=== PATIENT | female | born 1970 | race Caucasian/White ===

== ENCOUNTER 2024-06-29 10:19 | Observation (INO) ==
--- NOTE | 2024-06-29 10:34 | DR.SOBA ---
HPI Time Seen Time Seen by Provider: 06/29/24 10:34 Reviewed Nurses Notes Reviewed: Yes PE Vital Signs Vitals: Vital Signs Temperature 97.9 F Pulse Rate 79 Pulse Rate 79 Pulse Rate 75 Pulse Rate 75 Pulse Rate 75 Pulse Rate 78 Pulse Rate 80 Pulse Rate 79 Pulse Rate 73 Pulse Rate 81 Pulse Rate 75 Pulse Rate 75 Pulse Rate 74 Pulse Rate 77 Pulse Rate 73 Pulse Rate 80 Pulse Rate 77 Pulse Rate 77 Pulse Rate 79 Pulse Rate 82 Pulse Rate 82 Pulse Rate 84 Respiratory Rate 23 Respiratory Rate 22 Respiratory Rate 22 Respiratory Rate 26 Respiratory Rate 27 Respiratory Rate 31 Respiratory Rate 32 Respiratory Rate 35 Respiratory Rate 23 Respiratory Rate 35 Respiratory Rate 23 Respiratory Rate 22 Respiratory Rate 21 Respiratory Rate 23 Respiratory Rate 20 Respiratory Rate 32 Respiratory Rate 26 Respiratory Rate 24 Respiratory Rate 25 Respiratory Rate 20 Respiratory Rate 28 Respiratory Rate 20 Blood Pressure 136/80 O2 Sat by Pulse Oximetry 100 O2 Sat by Pulse Oximetry 100 O2 Sat by Pulse Oximetry 100 O2 Sat by Pulse Oximetry 100 O2 Sat by Pulse Oximetry 100 O2 Sat by Pulse Oximetry 100 O2 Sat by Pulse Oximetry 100 O2 Sat by Pulse Oximetry 100 O2 Sat by Pulse Oximetry 100 O2 Sat by Pulse Oximetry 100 O2 Sat by Pulse Oximetry 97 O2 Sat by Pulse Oximetry 97 O2 Sat by Pulse Oximetry 100 [facility] Labs Reviewed 06/30/24 05:26 06/30/24 05:26 Laboratory: WBC 8.0 X10^3/uL (3.6-10.0) 06/29/24 11:03 RBC 5.02 X10^6/uL (3.5-5.4) 06/29/24 11:03 Hgb 15.8 g/dL (12.0-16.0) 06/29/24 11:03 Hct 44.7 % (36.0-47.0) 06/29/24 11:03 MCV 89.0 fL (80.0-100.0) 06/29/24 11:03 MCH 31.4 pg (27.0-34.0) 06/29/24 11:03 MCHC 35.2 g/dL (33.0-35.0) H 06/29/24 11:03 RDW 12.5 % (11.6-16.5) 06/29/24 11:03 Plt Count 275 X10^3/uL (150.0-450.0) 06/29/24 11:03 MPV 8.9 fL (7.4-11.0) 06/29/24 11:03 Neut % (Auto) 61.6 % (42.0-75.0) 06/29/24 11:03 Lymph % (Auto) 28.9 % (21.0-51.0) 06/29/24 11:03 [place] % (Auto) 8.4 % (0.0-13.0) 06/29/24 11:03 Eos % (Auto) 0.4 % (0.9-2.9) L 06/29/24 11:03 Baso % (Auto) 0.7 % (0.2-1.0) 06/29/24 11:03 Neut # (Auto) 4.9 x10^3/uL (2.2-4.8) H 06/29/24 11:03 Lymph # (Auto) 2.3 X10^3/uL (1.3-2.9) 06/29/24 11:03 [place] # (Auto) 0.7 x10^3/uL (0.3-0.8) 06/29/24 11:03 Eos # (Auto) 0.0 x10^3/uL (0.0-0.2) 06/29/24 11:03 Baso # (Auto) 0.1 X10^3/uL (0.0-0.1) 06/29/24 11:03 Absolute Nucleated RBC 0.1 /100WBC 06/29/24 11:03 Sodium 136 mmol/L (136-145) 06/29/24 11:03 Corrected Sodium TNP 06/29/24 11:03 Potassium 2.8 mmol/L (3.5-5.1) L* 06/29/24 11:03 Chloride 99 mmol/L (98-107) 06/29/24 11:03 Carbon Dioxide 27.7 mmol/L (21-32) 06/29/24 11:03 BUN 9 mg/dL (7-18) 06/29/24 11:03 Creatinine 0.63 mg/dL (0.55-1.02) 06/29/24 11:03 Est GFR (MDRD) Af Amer > 60 (>60) 06/29/24 11:03 Est GFR (MDRD) Non-Af > 60 (>60) 06/29/24 11:03 Glucose 98 mg/dL (65-99) 06/29/24 11:03 Calcium 9.2 mg/dL (8.5-10.1) 06/29/24 11:03 Corrected Calcium TNP 06/29/24 11:03 Magnesium 2.0 mg/dL (2.0-2.9) 06/29/24 11:03 Total Bilirubin 0.60 mg/dL (0.2-1.0) 06/29/24 11:03 AST 15 Units/L (15-37) 06/29/24 11:03 ALT 39 Units/L (12-78) 06/29/24 11:03 Alkaline Phosphatase 95 Units/L (46-116) 06/29/24 11:03 Creatine Kinase 54 Units/L (26-192) 06/29/24 11:03 Troponin I High Sens 5.2 ng/L (4.0-60.0) 06/29/24 11:03 Total Protein 7.7 g/dL (6.4-8.2) 06/29/24 11:03 Albumin 4.1 g/dL (3.4-5.0) 06/29/24 11:03 Globulin 3.6 g/dL (2.5-4.5) 06/29/24 11:03 Albumin/Globulin Ratio 1.1 Ratio (1.1-2.1) 06/29/24 11:03 TSH 3rd Generation 1.766 uIU/mL (0.358-3.74) 06/29/24 11:03 Opioid Opioid Risk Tool Total: 0 Total Score Risk Category: Low Risk Copyright: [employer] predicting aberrant behaviors Discharge Plan Diagnosis Discharge Problem: Throat tightness, Chest pain, Dysphagia Discharge Plan Patient Disposition: ADMITTED INPATIENT Condition: Stable Orders to Discharge Patient Discharge Orders: Discharge (Routine); Ordered 06/30/24 Ordered By: ANNA RUIZ
[2024-06-29 11:12] LABS: BASOPHILS # (AUTO) 0.1 X10^3/uL (0.0-0.1); BASOPHILS % (AUTO) 0.7 % (0.2-1.0); EOSINOPHILS % (AUTO) 0.4 % (0.9-2.9); HEMATOCRIT 44.7 % (36.0-47.0); HEMOGLOBIN 15.8 g/dL (12.0-16.0); LYMPHOCYTES # (AUTO) 2.3 X10^3/uL (1.3-2.9); LYMPHOCYTES % (AUTO) 28.9 % (21.0-51.0); MEAN CORPUSCULAR HEMOGLOBIN 31.4 pg (27.0-34.0); MEAN CORPUSCULAR HGB CONC 35.2 g/dL (33.0-35.0); MEAN PLATELET VOLUME 8.9 fL (7.4-11.0); MONOCYTES # (AUTO) 0.7 x10^3/uL (0.3-0.8); MONOCYTES % (AUTO) 8.4 % (0.0-13.0); NEUTROPHILS # (AUTO) 4.9 x10^3/uL (2.2-4.8); NEUTROPHILS % (AUTO) 61.6 % (42.0-75.0); PLATELET COUNT 275 X10^3/uL (150.0-450.0); RED BLOOD COUNT 5.02 X10^6/uL (3.5-5.4); RED CELL DISTRIBUTION WIDTH 12.5 % (11.6-16.5)
[2024-06-29 11:32] LABS: ALANINE AMINOTRANSFERASE 39 Units/L (12-78); ALBUMIN 4.1 g/dL (3.4-5.0); ALKALINE PHOSPHATASE 95 Units/L (46-116); ASPARTATE AMINO TRANSFERASE 15 Units/L (15-37); BLOOD UREA NITROGEN 9 mg/dL (7-18); CALCIUM 9.2 mg/dL (8.5-10.1); CARBON DIOXIDE 27.7 mmol/L (21-32); CHLORIDE 99 mmol/L (98-107); CREATINE KINASE 54 Units/L (26-192); CREATININE 0.63 mg/dL (0.55-1.02); GLUCOSE 98 mg/dL (65-99); SODIUM 136 mmol/L (136-145); TOTAL PROTEIN 7.7 g/dL (6.4-8.2); TSH (3RD GENERATION) 1.766 uIU/mL (0.358-3.74); eGFR NON BLACK RACES > 60 (>60)
[2024-06-29 11:37] LABS: POTASSIUM 2.8 mmol/L (3.5-5.1)
--- NOTE | 2024-06-29 11:37 | RAD ---
EXAM:CHEST, 1 VIEWHISTORY:trouble swallowing;COMPARISON:NoneFINDINGS:The cardiomediastinal silhouette is normal in size.No acute airspace disease. No pneumothorax or effusion.No acute osseous abnormality.IMPRESSION:No acute cardiopulmonary disease.THIS IS AN ELECTRONICALLY VERIFIED FINAL REPORT06/29/2024 11:32 AM - Electronically signed by Miguelangel Louise MD
--- NOTE | 2024-06-29 11:48 | CT ---
EXAM:SOFT TISSUE NECK W/O CONHISTORY:pt states that she has felt her throat being swollen since 06/20/24 after she ate some shrimp;COMPARISON:None.TECHNIQUE:Axial CT images of the neck were obtained after the administration of IV contrast and reformatted into sagittal and coronal planes for further evaluation.All CT exams at this facility utilize dose modulation, iterative reconstruction, and/or weight based dosing as appropriate to reduce radiation levels to as low as reasonably achievable (ALARA).Radiation dose is recorded in the patient's medical record.FINDINGS:Oropharynx and nasopharynx are unremarkable.Retropharyngeal and parapharyngeal spaces appear normal.Epiglottis and aryepiglottic folds appear normal.Glottis appears normal.There is a prominent lymph node in the right parotid gland which does not meet criteria for adenopathy. Otherwise, parotid and submandibular glands appear normal.Thyroid appears normalLung apices are clear of focal airspace disease.No lymphadenopathy.Imaged portion of the structures of the mediastinum are unremarkable.No acute osseous abnormality.Imaged portion of brain and intracranial vasculature appears normal.Sinuses and mastoid air cells are well aerated.Imaged portion of the globes and intraorbital contents appear normal.Neck vasculature is unremarkable.IMPRESSION:No acute abnormality identified.THIS IS AN ELECTRONICALLY VERIFIED FINAL REPORT06/29/2024 11:44 AM - Electronically signed by Joseph Wilkins MD
[2024-06-29] MEDS: NS 1,000 ML IV 1,000 ML with POTASSIUM CHLORIDE INJ 40 MEQ VIAL 40 MEQ IV NR (12:05)
[2024-06-29] MEDS: PROTONIX INJ 40 MG VIAL 80 MG in NS 100 ML IV 80 ML IV SCH (14:28)
--- NOTE | 2024-06-29 15:42 | CT ---
EXAM: CT CHEST WITHOUT IV CONTRAST HISTORY: chest pain, dysphagia; COMPARISON: Chest x-ray from same date. TECHNIQUE: Axial CT images were obtained through the chest without IV contrast. Coronal and sagittal reformatte d images were included. All CT scans at this facility use dose modulation, iterative reconstruction, and/or weight based dosi ng when appropriate to reduce radiation dose to as low as reasonably achievable. FINDINGS: Normal caliber thoracic aorta and main pulmonary artery. No pericardial effusion. No thoracic lymph adenopathy. Small hiatal hernia. Trachea is midline and central airways are patent. No focal consolidation, pleural effusion, or pneu mothorax. No acute osseous findings. Visualized upper abdominal organs are unremarkable. No acute findings in the visualized upper abdomen. IMPRESSION: 1. No acute findings. 2. Small hiatal hernia. THIS IS AN ELECTRONICALLY VERIFIED FINAL REPORT 06/29/2024 3:38 PM - Electronically signed by Venkatesh Alejandra MD
[2024-06-29] MEDS ORDERED: MORPHINE SULFATE INJ 2 MG INJ IVP PRN (16:52)
[2024-06-29] MEDS ORDERED: ZOFRAN INJ 4 MG VIAL IVP PRN (16:52)
[2024-06-29 18:08] VITALS: BMI 31.6
[2024-06-29] MEDS: NS 1,000 ML IV 1,000 ML IV SCH (18:23)
[2024-06-30 06:17] LABS: BASOPHILS # (AUTO) 0.1 X10^3/uL (0.0-0.1); BASOPHILS % (AUTO) 0.9 % (0.2-1.0); EOSINOPHILS # (AUTO) 0.1 x10^3/uL (0.0-0.2); HEMATOCRIT 38.8 % (36.0-47.0); HEMOGLOBIN 13.6 g/dL (12.0-16.0); LYMPHOCYTES # (AUTO) 2.3 X10^3/uL (1.3-2.9); LYMPHOCYTES % (AUTO) 40.3 % (21.0-51.0); MEAN CORPUSCULAR HEMOGLOBIN 31.7 pg (27.0-34.0); MEAN CORPUSCULAR HGB CONC 35.2 g/dL (33.0-35.0); MEAN CORPUSCULAR VOLUME 90.1 fL (80.0-100.0); MEAN PLATELET VOLUME 9.5 fL (7.4-11.0); MONOCYTES # (AUTO) 0.6 x10^3/uL (0.3-0.8); MONOCYTES % (AUTO) 9.9 % (0.0-13.0); NEUTROPHILS # (AUTO) 2.7 x10^3/uL (2.2-4.8); NEUTROPHILS % (AUTO) 46.9 % (42.0-75.0); PLATELET COUNT 224 X10^3/uL (150.0-450.0); RED CELL DISTRIBUTION WIDTH 12.4 % (11.6-16.5); WHITE BLOOD COUNT 5.8 X10^3/uL (3.6-10.0)
[2024-06-30 06:29] LABS: ALANINE AMINOTRANSFERASE 36 Units/L (12-78); ALBUMIN 3.2 g/dL (3.4-5.0); ALKALINE PHOSPHATASE 74 Units/L (46-116); ASPARTATE AMINO TRANSFERASE 15 Units/L (15-37); BLOOD UREA NITROGEN 9 mg/dL (7-18); CALCIUM 8.3 mg/dL (8.5-10.1); CARBON DIOXIDE 27.3 mmol/L (21-32); CHLORIDE 104 mmol/L (98-107); COR CA(FOR HYPOALB) 8.9 mg/dL (8.5-10.1); CREATININE 0.56 mg/dL (0.55-1.02); GLUCOSE 89 mg/dL (65-99); POTASSIUM 3.2 mmol/L (3.5-5.1); SODIUM 141 mmol/L (136-145); TOTAL PROTEIN 6.1 g/dL (6.4-8.2); eGFR NON BLACK RACES > 60 (>60)
[2024-06-30] MEDS: LR 1,000 ML IV 100 ML IV PRN (07:58)
[2024-06-30] MEDS: XYLOCAINE 2 % (PLAIN) INJ PRN (08:08)
[2024-06-30] MEDS: DIPRIVAN VIAL 140 ML IVP PRN (08:08)
[2024-06-30] MEDS: NS + KCL 20 MEQ/L 1,000 ML IV SCH (09:32)
[2024-06-30] MEDS: LR 1,000 ML IV 1,000 ML IV ONE (09:32)
[2024-06-30] MEDS: DIPRIVAN VIAL 20 ML ONE (09:32)
[2024-06-30 11:56] VITALS: O2SAT 96
[2024-06-30 11:58] VITALS: BP 132/77; PULSE 77; RESP 21; TEMP 98.2
== END 2024-06-30 14:20 | disposition home or self-care (01) ==
LOC: ER 10:19 → MED/SURG 10:19
PROVIDERS: ADMIT Surgery; ATTEND Surgery
DX: R13.11 Dysphagia, oral phase; F41.8 Other specified anxiety disorders; R11.11 Vomiting without nausea; R60.0 Localized edema; Z91.81 History of falling; E87.6 Hypokalemia; K44.9 Diaphragmatic hernia without obstruction or gangrene; R07.0 Pain in throat; R79.89 Other specified abnormal findings of blood chemistry; K22.4 Dyskinesia of esophagus; R07.9 Chest pain, unspecified